=== PATIENT | male | born 1940 | race Asian ===

== ENCOUNTER 2017-12-16 14:42 | Emergency (ER) | payer BC, MEDICARE ==
[~2017-12-16] VITALS: Ht 165.1 cm; Wt 74.8 kg
--- NOTE | 2017-12-16 14:45 | NUR ---
BIB FAMILY DT PATIENT IS UNABLE TO SPEAK. PATIENT IS AWAKE, FOLLOW INSTRUCTIONS, HOWEVER PATIENT DOES NOT RESPONSE VERBALLY. PT WITH HX OF STROKE, PER PATIENT'S FAMILY, PATIENT WAS LAST SEEN TALKING LAST NIGHT 1999. PATIENT REMAINS AMBULATORY USING CANE, REMAINS UNSTEADY. PT IS AFEBRILE. MD AG AT
[2017-12-16] MEDS ORDERED: IV NS 0.9% 500 ML BAG IV ONE (15:00)
--- NOTE | 2017-12-16 15:00 | NUR ---
PT TAKEN TO CT SCAN.
--- NOTE | 2017-12-16 15:01 | NUR ---
PATIENT WAS TAKEN TO CT
[2017-12-16 15:06] LABS: BASOPHILS % (AUTO) 0.5 % (0.0-2.0); EOSINOPHILS % (AUTO) 5.5 % (0.0-6.0); HEMATOCRIT 49 % (39-51); HEMOGLOBIN 16.4 g/dL (13.5-17.5); LYMPHOCYTES # (AUTO) 1.3 /CMM (0.8-4.8); LYMPHOCYTES % (AUTO) 17.6 % (20.0-44.0); MEAN CORPUSCULAR HGB CONC 34 g/dl (31.0-36.0); MEAN CORPUSCULAR VOLUME 96 fL (80-96); MONOCYTES # (AUTO) 0.4 /CMM (0.1-1.30); MONOCYTES % (AUTO) 5.1 % (2.0-12.0); NEUTROPHILS # (AUTO) 5.4 /CMM (1.8-8.9); NEUTROPHILS % (AUTO) 71.3 % (43.0-81.0); PLATELET COUNT (AUTO) 150 /CMM (150-450); RDW COEFFICIENT OF VARIATION 13.4 (11.5-15.0); RED BLOOD CELL COUNT(AUTO) 5.08 MIL/uL (4.5-6.0); WHITE BLOOD COUNT (AUTO) 7.6 K/uL (4.3-11.0)
[2017-12-16 15:15] LABS: CARBON DIOXIDE 24 mmol/L (21-32); CHLORIDE 106 mmol/L (98-107); CREATININE 1.8 mg/dL (0.6-1.3); GLUCOSE 180 mg/dL (74-106); POTASSIUM 4.5 mmol/L (3.5-5.1); SODIUM SERUM 139 mmol/L (136-145); UREA NITROGEN, BLOOD 32 mg/dL (7-18)
[2017-12-16 15:20] LABS: ALANINE AMINOTRANSFERASE 59 U/L (12-78); ALBUMIN 4.1 g/dL (3.4-5.0); ALKALINE PHOSPHATASE 81 U/L (46-116); ASPARTATE AMINOTRANSFERASE 25 U/L (15-37); BILIRUBIN,DIRECT 0.1 mg/dL (0.0-0.2); BILIRUBIN,TOTAL 0.6 mg/dL (0.2-1.0); INR 0.96 (0.85-1.15); TOTAL PROTEIN, SERUM 8.1 g/dL (6.4-8.2)
[2017-12-16 15:22] LABS: TROPONIN I < 0.017 ng/mL (0.00-0.056)
[2017-12-16 15:49] LABS: CHOLESTEROL 158 mg/dL (<200); HDL CHOLESTEROL 66 mg/dL (40-60); LDL 77 mg/dL (0-99); TRIGLYCERIDES 195 mg/dL (30-150)
--- NOTE | 2017-12-16 15:53 | NUR ---
PATIENT ASSIGNED TO TELE 111-2,
[2017-12-16] MEDS ORDERED: ASPIRIN 325 MG TABLET PO ONE (16:00)
--- NOTE | 2017-12-16 16:01 | NUR ---
CALLED [facility] TO SPEAK WITH NEUROLOGIST DIRECTOR OF PHARMACY.
[2017-12-16] MEDS ORDERED: ATOR40TA PO (16:03)
[2017-12-16] MEDS ORDERED: LOSA25TA13 PO (16:03)
[2017-12-16] MEDS ORDERED: OMEP40CA37 PO (16:03)
--- NOTE | 2017-12-16 16:11 | NUR ---
PER PATIENT'S FSMILY PATIENTALREADY HAD ASPIRIN THIS AM. MD AG MADE AWRE
[2017-12-16] MEDS ORDERED: ASPIRIN EC 325 MG TABLET.DR PO ONE (16:14)
--- NOTE | 2017-12-16 16:26 | NUR ---
PAGED DR. MANCUSO TELE STROKE NEUROLOGIST FOR CONSULT
--- NOTE | 2017-12-16 16:30 | NUR ---
DR AG ON THE PHONE WITH DR MANCUSO
[2017-12-16 17:30] VITALS: BP 132/88
--- NOTE | 2017-12-16 17:35 | NUR ---
PATIENT WAS TRASNFERRED TO [facility] VIA ACLS PROTOCOL. S
== END 2017-12-16 17:35 | disposition short-term general hospital (02) ==
LOC: ER 14:46 → UNDOADMIN 16:40 → TELE1 16:40 → UNDODISIN 17:35
DX: I63.9 Cerebral infarction, unspecified (principal); I48.91 Unspecified atrial fibrillation; R51 Headache
CPT/HCPCS: 36415; 70450-TC; 71045-TC; 80048-TC; 80061-TC; 80076-TC; 84484-TC; 85025-TC; 85730-TC; 87081-TC; A4606; Z7610

== ENCOUNTER 2021-02-13 21:03 | Emergency (ER) | payer BC, OTHER ==
[~2021-02-13] VITALS: Ht 167.6 cm; Wt 72.6 kg
[~2021-02-13 21:03] MED LIST: ATOR40TA PO; LOSA25TA27 PO; OMEP40CA21 PO
--- NOTE | 2021-02-13 21:52 | NUR ---
pt bibfamily c/o constipation since sunday. Pt aaox4 breathing evenly and unlabored. Per , pt has visible stool blockage in anus. pt denies narcotic pain med use. Pt attached to monitor and pox. Pt given blanket and call light within reach
[2021-02-13] MEDS ORDERED: MAGNESIUM HYDROXIDE 30 ML UDC PO ONE (22:30)
[2021-02-13] MEDS ORDERED: MAGNESIUM CITRATE 296 ML BOTTLE PO ONE (22:30)
[2021-02-13] MEDS ORDERED: MAGNESIUM CITRATE 296 ML BOTTLE ONE (22:32)
[2021-02-13] MEDS ORDERED: MAGNESIUM HYDROXIDE 30 ML UDC ONE (22:32)
--- NOTE | 2021-02-13 23:22 | NUR ---
verbal order for fleet enema
[2021-02-13] MEDS ORDERED: NA PHOS,M-B/NA PHOS,DI-BA 1 EA ENEMA RC ONE ×2 (23:23→23:30)
--- NOTE | 2021-02-13 23:45 | NUR ---
digitally removed fecal impaction from pt. Tolerated
--- NOTE | 2021-02-14 | NUR ---
Patient discharged to home in stable condition. Written and verbal after care instructions given. Patient verbalizes understanding of instruction.pt ambulatory with a steady gait
[2021-02-14 00:29] VITALS: BP 148/88
== END 2021-02-14 | disposition home or self-care (01) ==
LOC: ER 21:10
DX: K59.00 Constipation, unspecified (principal); I10 Essential (primary) hypertension; E78.5 Hyperlipidemia, unspecified; Z86.73 Personal history of transient ischemic attack (TIA), and cerebral infarction without residual deficits; Z79.899 Other long term (current) drug therapy